=== PATIENT | female | born 1975 | race Caucasian/White ===

== ENCOUNTER 2017-12-09 11:26 | Emergency (ER) | payer OTHER ==
[~2017-12-09] VITALS: Ht 167.6 cm; Wt 95.3 kg
[2017-12-09] MEDS ORDERED: ZYRTEC10 M3 PO (15:33)
[2017-12-09] MEDS ORDERED: MEDROLPACK PO (15:33)
[2017-12-09] MEDS ORDERED: CLEOCIN HCL300 MG PO (15:33)
== END 2017-12-09 15:55 | disposition home or self-care (01) ==
LOC: ER 11:26
DX: R22.0 Localized swelling, mass and lump, head (principal); J32.8 Other chronic sinusitis